=== PATIENT | female | born 1950 | race Caucasian/White ===

== ENCOUNTER → 2022-09-29 | Outpatient (REF) | payer MEDICARE, BC | LOC: M SFHCWAGY 17:05 | PROVIDERS: ATTEND Advanced Practice Midwife | DX: Z12.4 Encounter for screening for malignant neoplasm of cervix (principal); N95.2 Postmenopausal atrophic vaginitis | CPT/HCPCS: 87624; G0123 ==

== ENCOUNTER → 2022-09-29 | Outpatient (CLI) | payer BC, MEDICARE | LOC: M WHC 13:13 | PROVIDERS: ATTEND Advanced Practice Midwife | DX: Z12.31 Encounter for screening mammogram for malignant neoplasm of breast (principal) ==

== ENCOUNTER → 2022-10-23 | Outpatient (CLI) | payer MEDICARE, BC | LOC: M WHC 11:43 | PROVIDERS: ATTEND Advanced Practice Midwife | DX: R14.0 Abdominal distension (gaseous) (principal) ==